=== PATIENT | male | born 1980 | race American Indian/Alaskan Native ===

== ENCOUNTER 2017-02-15 12:06 | Emergency (ER) | payer OTHER ==
[2017-02-15] MEDS ORDERED: Naproxen 550 mg Tab PO STA (13:16)
[2017-02-15] MEDS ORDERED: Silver Sulfadiazine 1% Cream (20 gm) TOP STA (13:17)
[2017-02-15] MEDS ORDERED: Naproxen 550 mg Tab PO ONE (13:28)
[2017-02-15] MEDS ORDERED: Silver Sulfadiazine 1% Cream (20 gm) ONE (13:32)
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
[2017-02-15 14:05] VITALS: BP 139/93; PULSE 88; RESP 18; TEMP 98.5; O2SAT 94
== END 2017-02-15 14:04 | disposition home or self-care (01) ==
LOC: C.ER 12:06
DX: S16.1XXA Strain of muscle, fascia and tendon at neck level, initial encounter (principal); S39.012A Strain of muscle, fascia and tendon of lower back, initial encounter; V43.52XA Car driver injured in collision with other type car in traffic accident, initial encounter; Y92.410 Unspecified street and highway as the place of occurrence of the external cause